=== PATIENT | male | born 1975 | race Caucasian/White ===

== ENCOUNTER 2018-07-08 09:34 | Emergency (ER) | payer SELFPAY ==
[~2018-07-08] VITALS: Ht 185.4 cm; Wt 115.2 kg
--- NOTE | 2018-07-08 10:25 | NUR ---
PT AMBULATORY TO ER BED 01 C/O FEVER W/ COUGH AND CONGESTION X 4 DAYS. 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 GOWNED AND PLACED ON MONITOR. AWAITING MD ALARCON.
--- NOTE | 2018-07-08 10:29 | NUR ---
DR REHMAN AT BEDSIDE FOR EVAL.
--- NOTE | 2018-07-08 10:30 | NUR ---
Note jovanone in EDM - 07/08/18 at 1320 by RUBÉN PT AMBULATORY TO ER BED 01. HERE FOR FEVER, COUGH AND CONGESTION X 4 DAYS NOW. PT IS FEBRILE DELI COOK. PLACED ON MONITOR. DENIES CHEST PAIN. AWAITING MD ALARCON.
--- NOTE | 2018-07-08 11:13 | NUR ---
RADIOLOGY AT BEDSIDE FOR CHEST XRAY.
[2018-07-08] MEDS ORDERED: ACETAMINOPHEN 325 MG TABLET ONE (11:14)
[2018-07-08] MEDS ORDERED: KETOROLAC TROMETHAMINE 15 MG/ML VIAL ONE (11:14)
[2018-07-08 11:19] LABS: BASOPHILS % (AUTO) 0.6 % (0.0-2.0); EOSINOPHILS % (AUTO) 0.1 % (0.0-6.0); HEMATOCRIT 44 % (39-51); HEMOGLOBIN 14.8 g/dL (13.5-17.5); LYMPHOCYTES # (AUTO) 0.8 /CMM (0.8-4.8); LYMPHOCYTES % (AUTO) 10.2 % (20.0-44.0); MEAN CORPUSCULAR HGB CONC 34 g/dl (31.0-36.0); MEAN CORPUSCULAR VOLUME 88 fL (80-96); MONOCYTES # (AUTO) 0.8 /CMM (0.1-1.30); MONOCYTES % (AUTO) 10.7 % (2.0-12.0); NEUTROPHILS # (AUTO) 6.1 /CMM (1.8-8.9); NEUTROPHILS % (AUTO) 78.4 % (43.0-81.0); PLATELET COUNT (AUTO) 160 /CMM (150-450); RED BLOOD CELL COUNT(AUTO) 4.99 MIL/uL (4.5-6.0); WHITE BLOOD COUNT (AUTO) 7.8 K/uL (4.3-11.0)
[2018-07-08] MEDS: KETOROLAC TROMETHAMINE INJ 30 MG/ML VIAL IV ONE (11:22)
[2018-07-08] MEDS: IV NS 0.9% 1,000 ML BAG IV ONE (11:22)
[2018-07-08] MEDS: ACETAMINOPHEN 650 MG/20.3 ML UDC PO ONE (11:23)
[2018-07-08 11:25] LABS: CALCIUM, SERUM 8.2 mg/dL (8.5-10.1); CARBON DIOXIDE 26 mmol/L (21-32); CHLORIDE 103 mmol/L (98-107); GLUCOSE 106 mg/dL (74-106); POTASSIUM 3.8 mmol/L (3.5-5.1); SODIUM SERUM 138 mmol/L (136-145); UREA NITROGEN, BLOOD 13 mg/dL (7-18)
[2018-07-08 11:31] LABS: ALANINE AMINOTRANSFERASE 36 U/L (12-78); ALBUMIN 3.5 g/dL (3.4-5.0); ALKALINE PHOSPHATASE 70 U/L (46-116); ASPARTATE AMINOTRANSFERASE 25 U/L (15-37); BILIRUBIN,DIRECT 0.2 mg/dL (0.0-0.2); BILIRUBIN,TOTAL 0.7 mg/dL (0.2-1.0); TOTAL PROTEIN, SERUM 7.5 g/dL (6.4-8.2)
--- NOTE | 2018-07-08 13:20 | NUR ---
Patient discharged to home in stable condition. Written and verbal after care instructions given. Patient verbalizes understanding of instruction.IV removed. Catheter intact and site benign. Pressure and 4x4 applied to site. No bleeding noted.
[2018-07-08 13:22] VITALS: BP 128/76
== END 2018-07-08 13:24 | disposition home or self-care (01) ==
LOC: ER 09:38
DX: J06.9 Acute upper respiratory infection, unspecified (principal); R00.0 Tachycardia, unspecified; R06.02 Shortness of breath; M79.10 Myalgia, unspecified site
CPT/HCPCS: 36415; 71045-TC; 80048-TC; 80076-TC; 83605-TC; 84484-TC; 85025-TC; 85730-TC; 87040-TC; 87400; J1885; J7030; J7040